=== PATIENT | female | born 1955 | race African-American/Black ===

== ENCOUNTER 2017-09-20 14:35 | Emergency (ER) | payer MEDICARE, MEDICAID ==
[~2017-09-20] VITALS: Ht 157.5 cm; Wt 74.8 kg
[~2017-09-20 14:35] MED LIST: NORCO 10-325 T1 EACH PO; ZOFRAN4 MG PO
[2017-09-20] MEDS ORDERED: oxyCODONE HCL/Acetaminophen 5/325mg ORAL ONE (15:15)
--- NOTE | 2017-09-20 15:41 | Diagnostic Imaging Report ---
Indication: Foot pain Technique: 3 views left foot Comparison: none Findings: No acute fractures. No dislocations. The joint spaces are preserved. There is slight pes planus. Small plantar spur Impression: No acute bony trauma
--- NOTE | 2017-09-20 15:42 | Diagnostic Imaging Report ---
Indication: Reason For Exam: PAIN Technique: 3 views of the left ankle Comparison: Findings: No acute fractures. No dislocations. Joint spaces are preserved. Normal mineralization. No radiopaque foreign body. Impression: Negative
--- NOTE | 2017-09-20 16:11 | Emergency Room Report ---
History of Present Illness General Chief Complaint: Lower Extremity Injury Present Illness HPI 61 YO Female presents to the ED c/o left ankle pain 10 out of 10 in severity after twisting her ankle denies hitting her head or loss of consciousness. Pain is exacerbated upon weightbearing or walking. Patient is unable to bear weight due to pain. She denies previous injuries to this extremity. Denies numbness tingling or loss of sensation or gross motor movements of the extremities, incontinence of bowel or bladder. Denies CP, Palpitations, LOC, AMS , dizziness, Changes in Vision, Sensation, paresthesias, or a sudden severe headache. Allergies: Coded Allergies: CODEINE (Verified Allergy, 10/24/12) Patient History Past Medical History: see triage record Past Surgical History: none Pertinent Family History: none Reviewed Nursing Documentation: PMH: Agreed, PSxH: Agreed Nursing Documentation-PMH Hx Cardiac Problems: Yes Hx Hypertension: Yes Hx Diabetes: Yes Review of Systems All Other Systems: negative except mentioned in HPI Physical Exam Vital Signs Date Time Temp Pulse Resp B/P (MAP) Pulse Ox O2 Delivery O2 Flow Rate FiO2 09/20/17 14:51 97.9 62 20 184/91 99 Room Air Sp02 EP Interpretation: reviewed, normal General Appearance: no apparent distress, alert, GCS 15, non-toxic Head: normocephalic, atraumatic Eyes: bilateral eye normal inspection, bilateral eye PERRL ENT: hearing grossly normal, normal voice Neck: full range of motion Respiratory: lungs clear, normal breath sounds, speaking full sentences Cardiovascular #1: regular rate, rhythm, normal capillary refill Cardiovascular #2: 2+ dorsalis pedis (L) Rectal: deferred Musculoskeletal: back normal, normal range of motion, no calf tenderness, tender - TTP to lateral and dorsal left ankle and foot, no bruising noted, some soft tissue swelling. NVI. Neurologic: alert, oriented x3, responsive, motor strength/tone normal, sensory intact, speech normal Skin: normal color, no rash, warm/dry, well hydrated Lymphatic: no adenopathy Medical Decision Making PA Attestation Dr. Blancas is my supervising Physician whom patient management has been discussed with. Diagnostic Impression: Primary Impression: Left ankle sprain Qualified Codes: S93.402A - Sprain of unspecified ligament of left ankle, initial encounter Additional Impression: Ankle pain, left Qualified Codes: M25.572 - Pain in left ankle and joints of left foot ER Course 61 YO Female presents to the ED c/o left ankle pain 10 out of 10 in severity after twisting her ankle denies hitting her head or loss of consciousness. Pain is exacerbated upon weightbearing or walking. Patient is unable to bear weight due to pain. She denies previous injuries to this extremity. Denies numbness tingling or loss of sensation or gross motor movements of the extremities, incontinence of bowel or bladder. Denies CP, Palpitations, LOC, AMS , dizziness, Changes in Vision, Sensation, paresthesias, or a sudden severe headache. Ddx considered but are not limited to Fracture, dislocation, contusion, Sprain/ Strain/Spasm to name a few. Vital signs: are WNL, pt. is afebrile H&PE are most consistent with musculoskeletal injury will perform imaging to r/ o fractures/dislocations. ORDERS: - X-ray Left Ankle 3 views - negative for fx, Dislocation, or significant soft tissue injury, per preliminary read in ED, and signed by REYMUNDO Webb , my supervising physician has reviewed, and agrees with my interpretation. - X-ray Left Foot 3 views - negative for fx, Dislocation, or significant soft tissue injury, per preliminary read in ED, and signed by REYMUNDO Webb , my supervising physician has reviewed, and agrees with my interpretation. ED INTERVENTIONS: - Percocet PO + Zofran ( pt. reports allergy to codiene and narcotics is nausea). - Leg posterior Splint applied to the left foot/ankle by audiology technician. Pt. remains neurovascularly intact. -Patient is provided with crutches and instructed on their use DISCHARGE: At this time pt. is stable for d/c to home. Will provide printed patient care instructions, and any necessary prescriptions. Care plan and follow up instructions have been discussed with the patient prior to discharge. Last Vital Signs Date Time Temp Pulse Resp B/P (MAP) Pulse Ox O2 Delivery O2 Flow Rate FiO2 09/20/17 14:51 97.9 62 20 184/91 99 Room Air Disposition: HOME, SELF-CARE Condition: Stable Scripts Ibuprofen* (MOTRIN*) 600 Mg Tablet 600 MG ORAL THREE TIMES A DAY, #20 TAB 0 Refills Prov: Richa Webb 09/20/17 Ondansetron Odt* (ZOFRAN ODT*) 4 Mg Tab.rapdis 4 MG ORAL Q6H Y for Nausea & Vomiting, #10 TAB Prov: Richa Webb 09/20/17 Hydrocodone Bit/Acetaminophen 5-325* (NORCO 5-325*) 1 Each Tablet 1 TAB ORAL Q6H Y for For Pain, #9 TAB 0 Refills Prov: Richa Webb 09/20/17 Referrals: NON PHYSICIAN (PCP) Patient Instructions: Ankle Sprain Additional Instructions: Take medications as directed. Follow up with an [facility] in 3-5 days, even if your symptoms have resolved. --Please review list of primary care clinics, if you do not already have a primary care provider who can give you an Orthopedic Referral. If symptoms do not improve you may require MRI imaging Return sooner to ED if new symptoms occur, or current symptoms become worse. Do not drink alcohol, drive, or operate heavy machinery while taking Maidens as this may cause drowsiness. - Please note that this Emergency Department Report was dictated using [employer] technology software, occasionally this can lead to erroneous entry secondary to interpretation by the dictation equipment. Richa Webb Sep 20, 2017 16:11
[2017-09-20] MEDS ORDERED: NORCO 5-325 TA1 EACH ORAL (16:12)
[2017-09-20] MEDS ORDERED: IBUPROFEN600 MG ORAL (16:12)
[2017-09-20] MEDS ORDERED: ZOFRAN ODT4 MG ORAL (16:12)
[2017-09-20 16:27] VITALS: BP 156/88
== END 2017-09-20 16:27 | disposition home or self-care (01) ==
LOC: EMR 15:43
DX: S93.402A Sprain of unspecified ligament of left ankle, initial encounter (principal); X50.1XXA Overexertion from prolonged static or awkward postures, initial encounter; Y92.89 Other specified places as the place of occurrence of the external cause; I10 Essential (primary) hypertension; E11.9 Type 2 diabetes mellitus without complications; Z88.6 Allergy status to analgesic agent
CPT/HCPCS: 99284